=== PATIENT | male | born 1975 | race Caucasian/White ===

== ENCOUNTER 2016-11-06 15:33 | Emergency (ER) | payer SELFPAY ==
[2016-11-06 16:00] VITALS: TEMP 98.2
[2016-11-06] MEDS ORDERED: Sodium Chloride 0.9% 1,000 ML IV ONE (16:22)
[2016-11-06] MEDS ORDERED: Sodium Chloride 0.9% 1,000 ML ONE (16:46)
[2016-11-06 16:47] LABS: BASO # 0.1 K/uL (0.0-0.2); BASO % 1.5 % (0.0-2.0); EOS # 0.2 K/uL (0.0-0.7); EOS % 3.9 % (0.0-4.0); HEMATOCRIT 40.3 % (35.0-51.0); LYMPH # 1.8 K/uL (1.0-4.3); MEAN CELL VOLUME 91.4 fL (80.0-94.0); MEAN CORPUSCULAR HGB CONC 33.9 g/dL (33.0-37.0); MEAN PLATELET VOLUME 7.9 fL (7.2-11.7); MONO # 0.5 K/uL (0.0-0.8); MONO % 8.3 % (0.0-10.0); RED CELL DISTRIBUTION WIDTH 13.9 % (11.5-14.5); WHITE BLOOD COUNT 5.9 K/uL (4.8-10.8)
[2016-11-06 16:53] LABS: CHLORIDE 101 mmol/L (98-107)
[2016-11-06 16:54] LABS: POTASSIUM 3.6 mmol/L (3.6-5.2); SODIUM 136 mmol/L (132-148)
[2016-11-06 16:56] LABS: BILIRUBIN,TOTAL 0.5 mg/dL (0.2-1.3); GFR AFRICAN-AMERICAN > 60
[2016-11-06 16:57] LABS: ALB/GLOB RATIO 1.4 (1.0-2.1); ALKALINE PHOSPHATASE 62 U/L (38-126); ALT/SGPT 24 U/L (21-72); AST/SGOT 20 U/L (17-59); BLOOD UREA NITROGEN 13 mg/dL (9-20); CALCIUM 7.8 mg/dl (8.6-10.4); CARBON DIOXIDE 27 mmol/L (22-30); GLUCOSE,RANDOM 81 mg/dL (75-110); TOTAL PROTEIN 6.6 g/dL (6.3-8.3)
--- NOTE | 2016-11-06 17:16 | C.PDOC ---
History Of Present Illness Pt c/o red blood in toilet bowl when he has a bowel movement sometimes. Time Seen by Provider: 11/06/16 16:15 Chief Complaint (Nursing): GI Problem History Per: Patient Onset/Duration Of Symptoms: Days (about 2 months), Intermittent Episodes Current Symptoms Are (Timing): Still Present Number Of Bleeding Episodes: Multiple: Amount of Blood Loss: Small Severity: Moderate Associated Symptoms: Rectal Bleeding Modifying Factors: None Additional History Per: Prior Records Past Medical History Reviewed: Historical Data, Nursing Documentation, Vital Signs Vital Signs: Last Vital Signs Temp 98.2 F 11/06/16 15:58 Pulse 86 11/06/16 15:58 Resp 16 11/06/16 15:58 BP 120/73 11/06/16 15:58 Pulse Ox 98 11/06/16 15:58 - Medical History PMH: No Chronic Diseases Surgical History: No Surg Hx - [facility] Procedures OTHER SKIN & SUBQ I D (05/05/13) Family History: States: Unknown Family Hx - Social History Hx Tobacco Use: Yes Hx Alcohol Use: No Hx Substance Use: No - Immunization History Hx Tetanus Toxoid Vaccination: Yes Hx Influenza Vaccination: Yes Hx Pneumococcal Vaccination: Yes Review Of Systems Except As Marked, All Systems Reviewed And Found Negative. Constitutional: Negative for: Fever Cardiovascular: Negative for: Chest Pain Respiratory: Negative for: Shortness of Breath Gastrointestinal: Negative for: Vomiting, Abdominal Pain, Melena, Hematemesis, Rectal Pain Musculoskeletal: Negative for: Neck Pain, Back Pain Skin: Negative for: Rash Neurological: Negative for: Weakness, Numbness, Seizures, Altered Mental Status Physical Exam - Physical Exam Appears: Non-toxic, No Acute Distress Skin: Normal Color, Warm, Dry, No Rash Head: Atraumatic, Normacephalic Eye(s): bilateral: PERRL, EOMI Neck: Normal ROM, Supple Cardiovascular: Rhythm Regular Respiratory: Normal Breath Sounds, No Accessory Muscle Use Gastrointestinal/Abdominal: Soft, No Tenderness Rectal: Hemorrhoids (? skin tags), Other (Painful rectal exam, but no stool or blood found in rectal vault) Back: No CVA Tenderness Extremity: Normal ROM Neurological/Psych: Oriented x3, Normal Motor, Normal Sensation ED Course And Treatment - Laboratory Results Result Diagrams: 11/06/16 16:43 11/06/16 16:43 Lab Interpretation: No Acute Changes O2 Sat by Pulse Oximetry: 98 Pulse Ox Interpretation: Normal Reassessment Condition: Improved Disposition Counseled Patient/Family Regarding: Studies Performed, Diagnosis, Need For Followup, Rx Given - Disposition Referrals: [facility] [Outside] Disposition: HOME/ ROUTINE Disposition Time: 17:17 Condition: STABLE Additional Instructions: Follow up in the clinic for further evaluation and treatment, including for possible colonoscopy. Return to the ER if you develop worsening of symptoms or if you have any other concerns. Prescriptions: Docusate [Colace] 100 mg PO BID PRN #60 cap PRN Reason: Constipation Phenylephrine [Annabella-Med NF] 1 supp RC QID PRN #30 sup PRN Reason: Hemorrhoids Instructions: Hemorrhoids (ED) - Clinical Impression Clinical Impression: Rectal bleeding
[2016-11-06 17:29] VITALS: BP 112/72; PULSE 71; RESP 17; O2SAT 99
== END 2016-11-06 17:29 | disposition home or self-care (01) ==
LOC: C.ER 15:33
DX: K62.5 Hemorrhage of anus and rectum (principal)
CPT/HCPCS: 80053; 85025; 85610; 85730; 96361; 96374; 99284; C9113; J7040